=== PATIENT | male | born 1955 | race Caucasian/White ===

== ENCOUNTER 2021-12-19 12:31 | Inpatient (IN) | payer OTHER, MEDICARE ==
[2021-12-19 12:48] VITALS: BMI 24.1
[2021-12-19] MEDS ORDERED: Acetaminophen 325 MG TAB PO PRN ×2 (13:13→15:19)
[2021-12-19] MEDS ORDERED: Ondansetron ODT 4 MG TAB PO PRN (13:13)
[2021-12-19] MEDS ORDERED: Ondansetron PF 4 MG/2 ML Vial IVP PRN (13:13)
[2021-12-19] MEDS ORDERED: Dextrose 5% in Water 1,000 ML IV PRN (13:41)
[2021-12-19] MEDS ORDERED: Dextrose 50% Abboject 50 ML SYRINGE SLOW IVP PRN (13:41)
[2021-12-19] MEDS ORDERED: HumaLOG 300 UNITS/3 ML VIAL SC PRN (13:41)
[2021-12-19] MEDS: Sodium Chloride 0.9% 1,000 ML IV SCH (14:06)
[2021-12-19] MEDS: Morphine 2 MG/ML VIAL SLOW IVP PRN (14:38)
[2021-12-19] MEDS: Sodium Bicarbonate Tab 325 MG TAB PO SCH ×2 (14:57→21:34)
[2021-12-19] MEDS ORDERED: Benzonatate 100 MG CAP PO PRN (15:19)
[2021-12-19] MEDS ORDERED: Acetaminophen 650 MG Suppository PR PRN (15:19)
[2021-12-19 15:51] LABS: Bilirubin Neg (Negative); Blood, Urine 50 (Negative); Clarity Slightly Cloudy (Clear); Glucose, Urine (Dipstick) >=1000 mg/dL (Negative); Ketone, Urine Negative (Negative); Leukocyte 500 (Negative); Nitrite Negative (Negative); Protein, Urine (Dipstick) 100 mg/dl (Neg-Trace); Urobilinogen Normal mg/dL (Less than 2)
[2021-12-19 15:59] LABS: Bacteria/HPF Rare-Few HPF (None Seen); Squamous Epithelial 0-3 HPF (0-3); WBC/HPF 21-50 HPF (0-3); Yeast-Budding 2+ HPF (None Seen); Yeast-Hyphae Rare HPF (None Seen)
[2021-12-19] MEDS ORDERED: Ventolin HFA Inhaler 60 PUFF INHALER INH PRN (16:03)
[2021-12-19] MEDS: HumaLOG 300 UNITS/3 ML VIAL SC PRN (16:24)
[2021-12-19] MEDS: Micafungin 100 MG in Sodium Chloride 0.9% 100 ML IVPB SCH (16:24)
[2021-12-19] MEDS ORDERED: glipiZIDE 5 MG TAB PO SCH (16:30)
[2021-12-19] MEDS ORDERED: metFORMIN 500 MG TAB PO SCH (17:00)
[2021-12-19] MEDS ORDERED: Albumin 25% 25 GM/100 ML BOT IVPB SCH (17:30)
[2021-12-19] MEDS ORDERED: VANCOMYCIN 1.25 GM/250 ML BAG IVPB SCH (21:00)
[2021-12-19] MEDS ORDERED: Famotidine/PF 20 mg/2ml Vial SLOW IVP SCH (21:00)
[2021-12-19] MEDS ORDERED: Famotidine 20 MG TAB PO SCH (21:00)
[2021-12-19] MEDS: Cefepime 1 GM in Sodium Chloride 0.9% 100 ML IVPB SCH (21:31)
[2021-12-19] MEDS: Heparin 5,000 UNITS/ML VIAL SC SCH (21:33)
[2021-12-19] MEDS: Megestrol Acetate 400 MG/10 ML UDCUP PO SCH (21:33)
[2021-12-19] MEDS: Gabapentin 300 MG CAP PO SCH (21:34)
[2021-12-19] MEDS: predniSONE 5 MG TAB PO SCH (21:35)
[2021-12-19] MEDS: Lantus 1000 UNITS/10 ML VIAL SC SCH (22:11)
[2021-12-20] MEDS: Vancomycin HCl 500 MG in Sodium Chloride 0.9% 100 ML IVPB SCH (02:23)
[2021-12-20] MEDS: Sodium Chloride 0.9% 1,000 ML IV SCH ×2 (02:26→15:09)
[2021-12-20] MEDS: HumaLOG 300 UNITS/3 ML VIAL SC PRN ×3 (05:50→17:20)
[2021-12-20 05:52] LABS: MDiff Complete? YES; Mean Corpuscular HGB CONC 31.7 g/dL (32.0-36.0); Mean Corpuscular Hemoglobin 28.5 pg (27.0-33.0); Mean Corpuscular Volume 89.8 fl (81.2-95.1); Mean Platelet Volume 11.6 fl (7.4-10.4); Platelet Count 294 10x3/uL (150-450); RBC Distribution Width 17.6 % (11.5-14.5); Red Blood Cell (RBC) Count 2.46 10x6/uL (4.32-5.72); White Blood Cell (WBC) Count 19.1 10x3/uL (3.5-10.5)
[2021-12-20 06:03] LABS: ALT (SGPT) 6 U/L (8-55); AST (SGOT) 10 U/L (5-34); Albumin 2.7 g/dL (3.4-4.8); Alkaline Phosphatase 108 U/L (40-110); Anion Gap 13 mmol/L (10-20); BUN (Urea Nitrogen) 57 mg/dL (8.4-25.7); Bilirubin, Total 0.3 mg/dL (0.2-1.2); Calc. Creatinine Clearance 30 mL/min (70-130); Calcium 8.5 mg/dL (7.8-10.44); Carbon Dioxide 15 mmol/L (23-31); Chloride 121 mmol/L (98-107); Estimated GFR 25; Globulin 3.7 g/dL (2.4-3.5); Glucose 242 mg/dL (80-115); Potassium 4.2 mmol/L (3.5-5.1); Protein, Total 6.4 g/dL (5.8-8.1); Sodium 145 mmol/L (136-145)
[2021-12-20 06:43] LABS: Band 1 % (5-11); Eosinophils 2 % (0-10); Lymphocytes 12 % (21-51); Monocytes 8 % (0-10); Neutrophil 77 % (42-75)
[2021-12-20 06:45] LABS: Anisocytosis MODERATE=16-30 cells (100X) (0-5/hpf)
[2021-12-20 06:46] LABS: Hypochromia SLIGHT = 6-15 cells (100X) (0-5/hpf); Microcytosis MODERATE=15-30 cells (100X) (0-5/hpf); Platelet Morphology Comment Appears Adequate
[2021-12-20] MEDS ORDERED: Lidocaine 1% PF 5 ML VIAL ONE (07:43)
[2021-12-20] MEDS ORDERED: Sodium Bicarbonate 2.5 MEQ/5 ML VIAL ONE (07:44)
[2021-12-20] MEDS ORDERED: Enoxaparin Sodium 40 MG/0.4 ML SYRINGE SC SCH (09:00)
[2021-12-20] MEDS ORDERED: Fluconazole In NaCl,Iso-Osm 400 MG in Premix Bag 1 BAG IVPB SCH (09:00)
[2021-12-20] MEDS: Heparin 5,000 UNITS/ML VIAL SC SCH ×3 (09:07→22:00)
[2021-12-20] MEDS: HYDROcodone/Acetaminophen 5/325 mg Tablet PO PRN (09:07)
[2021-12-20] MEDS: Megestrol Acetate 400 MG/10 ML UDCUP PO SCH ×2 (09:07→21:41)
[2021-12-20] MEDS: Atorvastatin Calcium 40 MG TAB PO SCH (09:07)
[2021-12-20] MEDS: Sodium Bicarbonate Tab 325 MG TAB PO SCH ×3 (09:07→21:42)
[2021-12-20] MEDS: Gabapentin 300 MG CAP PO SCH ×2 (09:08→21:42)
[2021-12-20] MEDS: Aspirin 81 mg Enteric Coated Tablet PO SCH (09:08)
[2021-12-20] MEDS: predniSONE 5 MG TAB PO SCH ×2 (09:10→21:42)
[2021-12-20] MEDS: metroNIDAZOLE 500 MG TAB PO SCH ×2 (15:09→21:49)
[2021-12-20] MEDS: Micafungin 100 MG in Sodium Chloride 0.9% 100 ML IVPB SCH (17:18)
[2021-12-20] MEDS: Famotidine 20 MG TAB PO SCH (21:52)
[2021-12-20] MEDS: Lantus 1000 UNITS/10 ML VIAL SC SCH (22:00)
[2021-12-20] MEDS: Cefepime 1 GM in Sodium Chloride 0.9% 100 ML IVPB SCH (22:07)
[2021-12-21] MEDS: Famotidine/PF 20 mg/2ml Vial SLOW IVP SCH ×2 (00:59→21:33)
[2021-12-21 05:28] LABS: Hemoglobin 6.9 g/dL (13.5-17.5); Mean Corpuscular HGB CONC 32.1 g/dL (32.0-36.0); Mean Corpuscular Hemoglobin 28.6 pg (27.0-33.0); Mean Corpuscular Volume 89.2 fl (81.2-95.1); Mean Platelet Volume 11.6 fl (7.4-10.4); Platelet Count 291 10x3/uL (150-450); RBC Distribution Width 17.7 % (11.5-14.5); Red Blood Cell (RBC) Count 2.41 10x6/uL (4.32-5.72); White Blood Cell (WBC) Count 21.6 10x3/uL (3.5-10.5)
[2021-12-21 05:30] LABS: MDiff Complete? YES
[2021-12-21 05:46] LABS: Anion Gap 14 mmol/L (10-20); BUN (Urea Nitrogen) 52 mg/dL (8.4-25.7); Calc. Creatinine Clearance 32 mL/min (70-130); Calcium 8.7 mg/dL (7.8-10.44); Carbon Dioxide 14 mmol/L (23-31); Chloride 120 mmol/L (98-107); Estimated GFR 27; Glucose 167 mg/dL (80-115); Magnesium 1.9 mg/dL (1.6-2.6); Sodium 144 mmol/L (136-145)
[2021-12-21 05:47] LABS: Iron 11 ug/dL (65-175); Iron Binding Capacity, Total 76 mcg/dL (261-462)
[2021-12-21 07:17] LABS: Band 6 % (5-11); Eosinophils 2 % (0-10); Lymphocytes 6 % (21-51); Monocytes 9 % (0-10); Neutrophil 76 % (42-75); Reactive Lymphocytes 1 % (0-10)
[2021-12-21 07:19] LABS: Anisocytosis SLIGHT = 6-15 cells (100X) (0-5/hpf); Hypochromia SLIGHT = 6-15 cells (100X) (0-5/hpf); Platelet Morphology Comment Appears Adequate; Polychromasia SLIGHT = 2-3 cells (100X) (0-2/hpf)
[2021-12-21] MEDS: Albumin 25% 25 GM/100 ML BOT IVPB SCH ×3 (09:09→20:06)
[2021-12-21] MEDS: Sodium Chloride 0.9% 1,000 ML IV SCH ×2 (09:09→19:01)
[2021-12-21] MEDS: metroNIDAZOLE 500 MG TAB PO SCH ×3 (09:09→22:56)
[2021-12-21] MEDS: Atorvastatin Calcium 40 MG TAB PO SCH (09:09)
[2021-12-21] MEDS: Sodium Bicarbonate Tab 325 MG TAB PO SCH ×3 (09:09→21:34)
[2021-12-21] MEDS: Gabapentin 300 MG CAP PO SCH ×2 (09:09→21:35)
[2021-12-21] MEDS: Aspirin 81 mg Enteric Coated Tablet PO SCH (09:09)
[2021-12-21] MEDS: Megestrol Acetate 400 MG/10 ML UDCUP PO SCH ×2 (09:09→21:37)
[2021-12-21] MEDS: Cefepime 1 GM in Sodium Chloride 0.9% 100 ML IVPB SCH ×2 (09:10→22:53)
[2021-12-21] MEDS: Heparin 5,000 UNITS/ML VIAL SC SCH ×3 (09:10→22:24)
[2021-12-21] MEDS: predniSONE 5 MG TAB PO SCH (09:12)
[2021-12-21 14:28] LABS: Vancomycin, Trough 16.1 ug/mL
[2021-12-21] MEDS: Vancomycin HCl 500 MG in Sodium Chloride 0.9% 100 ML IVPB SCH (15:50)
[2021-12-21] MEDS: Micafungin 100 MG in Sodium Chloride 0.9% 100 ML IVPB SCH (17:58)
[2021-12-21] MEDS: Famotidine 20 MG TAB PO SCH (22:35)
[2021-12-21] MEDS: Lantus 1000 UNITS/10 ML VIAL SC SCH (22:57)
[2021-12-22] MEDS: Albumin 25% 25 GM/100 ML BOT IVPB SCH (01:58)
[2021-12-22 05:33] LABS: Anion Gap 13 mmol/L (10-20); BUN (Urea Nitrogen) 43 mg/dL (8.4-25.7); Calc. Creatinine Clearance 35 mL/min (70-130); Calcium 8.5 mg/dL (7.8-10.44); Carbon Dioxide 14 mmol/L (23-31); Chloride 121 mmol/L (98-107); Estimated GFR 29; Glucose 121 mg/dL (80-115); Magnesium 1.8 mg/dL (1.6-2.6); Potassium 3.8 mmol/L (3.5-5.1); Sodium 144 mmol/L (136-145)
[2021-12-22 05:40] LABS: Hemoglobin 6.7 g/dL (13.5-17.5); Mean Corpuscular HGB CONC 31.9 g/dL (32.0-36.0); Mean Corpuscular Hemoglobin 28.3 pg (27.0-33.0); Mean Corpuscular Volume 88.6 fl (81.2-95.1); Mean Platelet Volume 11.3 fl (7.4-10.4); Platelet Count 246 10x3/uL (150-450); Red Blood Cell (RBC) Count 2.37 10x6/uL (4.32-5.72); White Blood Cell (WBC) Count 15.4 10x3/uL (3.5-10.5)
[2021-12-22] MEDS: Sodium Chloride 0.9% 1,000 ML IV SCH (05:56)
[2021-12-22 06:22] LABS: MDiff Complete? YES
[2021-12-22 06:55] LABS: Band 2 % (5-11); Eosinophils 3 % (0-10); Lymphocytes 4 % (21-51); Monocytes 11 % (0-10); Neutrophil 80 % (42-75)
[2021-12-22 06:58] LABS: Anisocytosis SLIGHT = 6-15 cells (100X) (0-5/hpf); Hypochromia SLIGHT = 6-15 cells (100X) (0-5/hpf); Microcytosis SLIGHT = 6-15 cells (100X) (0-5/hpf); Ovalocytes SLIGHT = 2-5 cells (100X) (0-1/hpf); Platelet Morphology Comment Appears Adequate; Polychromasia SLIGHT = 2-3 cells (100X) (0-2/hpf)
[2021-12-22] MEDS: Aspirin 81 mg Enteric Coated Tablet PO SCH (08:53)
[2021-12-22] MEDS: Heparin 5,000 UNITS/ML VIAL SC SCH (08:53)
[2021-12-22] MEDS: HYDROcodone/Acetaminophen 5/325 mg Tablet PO PRN ×2 (08:53→21:52)
[2021-12-22] MEDS: Gabapentin 300 MG CAP PO SCH ×2 (08:53→21:52)
[2021-12-22] MEDS: metroNIDAZOLE 500 MG TAB PO SCH ×3 (08:53→21:54)
[2021-12-22] MEDS: Megestrol Acetate 400 MG/10 ML UDCUP PO SCH ×2 (08:53→21:50)
[2021-12-22] MEDS: Cefepime 1 GM in Sodium Chloride 0.9% 100 ML IVPB SCH ×2 (08:54→21:54)
[2021-12-22] MEDS: Atorvastatin Calcium 40 MG TAB PO SCH (08:55)
[2021-12-22] MEDS: Sodium Bicarbonate Tab 325 MG TAB PO SCH ×3 (08:55→21:53)
[2021-12-22 11:48] LABS: Puncture Site RRA
[2021-12-22 11:49] LABS: Actual Bicarbonate (HCO3v) 15 mEq/L (22-28); Base Excess -7.5 mEq/L (-2.0 to +3.0); pH (venous) 7.49 (7.32-7.43)
[2021-12-22 11:50] LABS: Hemoglobin (Hb) 7.9 g/dL (12.6-17.4)
[2021-12-22 11:51] LABS: Calcium, Ionized (venous) 1.13 mmol/L (1.16-1.32); Chloride (VBG) 119 mmol/L (98-106); Potassium (VBG) 4.09 mmol/L (3.70-5.30); RapidComm Collect By CBN
[2021-12-22] MEDS: Micafungin 100 MG in Sodium Chloride 0.9% 100 ML IVPB SCH (15:51)
[2021-12-22] MEDS: HumaLOG 300 UNITS/3 ML VIAL SC PRN (17:04)
[2021-12-22] MEDS: Famotidine/PF 20 mg/2ml Vial SLOW IVP SCH (21:49)
[2021-12-22] MEDS: Famotidine 20 MG TAB PO SCH (21:58)
[2021-12-22] MEDS: Lantus 1000 UNITS/10 ML VIAL SC SCH (22:00)
[2021-12-23] MEDS: Sodium Chloride 0.9% 1,000 ML IV SCH ×2 (04:00→08:57)
[2021-12-23] MEDS: Vancomycin HCl 500 MG in Sodium Chloride 0.9% 100 ML IVPB SCH (04:00)
[2021-12-23 04:38] LABS: Hemoglobin 8.7 g/dL (13.5-17.5); Mean Corpuscular HGB CONC 32.5 g/dL (32.0-36.0); Mean Corpuscular Hemoglobin 28.3 pg (27.0-33.0); Mean Corpuscular Volume 87.3 fl (81.2-95.1); Mean Platelet Volume 11.5 fl (7.4-10.4); Platelet Count 280 10x3/uL (150-450); RBC Distribution Width 17.4 % (11.5-14.5); Red Blood Cell (RBC) Count 3.07 10x6/uL (4.32-5.72); White Blood Cell (WBC) Count 18.6 10x3/uL (3.5-10.5)
[2021-12-23 04:53] LABS: Anion Gap 13 mmol/L (10-20); BUN (Urea Nitrogen) 41 mg/dL (8.4-25.7); Calc. Creatinine Clearance 34 mL/min (70-130); Calcium 8.4 mg/dL (7.8-10.44); Carbon Dioxide 14 mmol/L (23-31); Chloride 119 mmol/L (98-107); Estimated GFR 29; Glucose 184 mg/dL (80-115); Magnesium 1.7 mg/dL (1.6-2.6); Potassium 3.9 mmol/L (3.5-5.1); Sodium 142 mmol/L (136-145)
[2021-12-23 04:54] LABS: MDiff Complete? YES
[2021-12-23 04:57] LABS: Band 7 % (5-11); Eosinophils 2 % (0-10); Lymphocytes 11 % (21-51); Metamyelocyte 1 % (0-0); Monocytes 5 % (0-10); Neutrophil 74 % (42-75)
[2021-12-23 04:58] LABS: Platelet Morphology Comment Appears Adequate; RBC Morphology Normal
[2021-12-23] MEDS: Cefepime 1 GM in Sodium Chloride 0.9% 100 ML IVPB SCH ×2 (08:57→21:42)
[2021-12-23] MEDS: Megestrol Acetate 400 MG/10 ML UDCUP PO SCH ×2 (08:57→21:42)
[2021-12-23] MEDS: Aspirin 81 mg Enteric Coated Tablet PO SCH (08:58)
[2021-12-23] MEDS: Sodium Bicarbonate Tab 325 MG TAB PO SCH ×3 (08:58→21:41)
[2021-12-23] MEDS: metroNIDAZOLE 500 MG TAB PO SCH ×3 (08:58→21:40)
[2021-12-23] MEDS: Gabapentin 300 MG CAP PO SCH ×2 (08:58→21:41)
[2021-12-23] MEDS: HYDROcodone/Acetaminophen 5/325 mg Tablet PO PRN ×2 (08:58→21:39)
[2021-12-23] MEDS: Atorvastatin Calcium 40 MG TAB PO SCH (09:22)
[2021-12-23] MEDS: HumaLOG 300 UNITS/3 ML VIAL SC PRN (12:07)
[2021-12-23] MEDS: Micafungin 100 MG in Sodium Chloride 0.9% 100 ML IVPB SCH (18:04)
[2021-12-23] MEDS: Famotidine 20 MG TAB PO SCH (21:41)
[2021-12-23] MEDS: Famotidine/PF 20 mg/2ml Vial SLOW IVP SCH (22:08)
[2021-12-23] MEDS: Lantus 1000 UNITS/10 ML VIAL SC SCH (22:08)
[2021-12-24 03:59] LABS: Hemoglobin 9.5 g/dL (13.5-17.5); Mean Corpuscular HGB CONC 32.1 g/dL (32.0-36.0); Mean Corpuscular Hemoglobin 28.2 pg (27.0-33.0); Mean Corpuscular Volume 87.8 fl (81.2-95.1); Mean Platelet Volume 11.2 fl (7.4-10.4); Platelet Count 299 10x3/uL (150-450); RBC Distribution Width 17.5 % (11.5-14.5); Red Blood Cell (RBC) Count 3.37 10x6/uL (4.32-5.72); White Blood Cell (WBC) Count 20.7 10x3/uL (3.5-10.5)
[2021-12-24 04:12] LABS: Anion Gap 14 mmol/L (10-20); BUN (Urea Nitrogen) 38 mg/dL (8.4-25.7); Calc. Creatinine Clearance 31 mL/min (70-130); Calcium 8.3 mg/dL (7.8-10.44); Carbon Dioxide 13 mmol/L (23-31); Chloride 118 mmol/L (98-107); Estimated GFR 25; Glucose 236 mg/dL (80-115); Potassium 4.4 mmol/L (3.5-5.1); Sodium 141 mmol/L (136-145)
[2021-12-24 04:40] LABS: MDiff Complete? YES
[2021-12-24 04:42] LABS: Band 4 % (5-11); Eosinophils 1 % (0-10); Lymphocytes 2 % (21-51); Metamyelocyte 1 % (0-0); Monocytes 3 % (0-10); Neutrophil 89 % (42-75); Platelet Morphology Comment Appears Adequate
[2021-12-24 04:43] LABS: RBC Morphology Normal
[2021-12-24 04:53] LABS: Magnesium 1.7 mg/dL (1.6-2.6)
[2021-12-24] MEDS: HYDROcodone/Acetaminophen 5/325 mg Tablet PO PRN ×2 (05:58→11:34)
[2021-12-24] MEDS: Sodium Chloride 0.9% 1,000 ML IV SCH ×4 (07:37→23:07)
[2021-12-24] MEDS: HumaLOG 300 UNITS/3 ML VIAL SC PRN ×3 (07:37→17:11)
[2021-12-24] MEDS: Cefepime 1 GM in Sodium Chloride 0.9% 100 ML IVPB SCH ×2 (08:55→21:01)
[2021-12-24] MEDS: Atorvastatin Calcium 40 MG TAB PO SCH (08:56)
[2021-12-24] MEDS: Aspirin 81 mg Enteric Coated Tablet PO SCH (08:56)
[2021-12-24] MEDS: Megestrol Acetate 400 MG/10 ML UDCUP PO SCH ×2 (08:56→21:05)
[2021-12-24] MEDS: Sodium Bicarbonate Tab 325 MG TAB PO SCH ×3 (08:56→21:04)
[2021-12-24] MEDS: metroNIDAZOLE 500 MG TAB PO SCH ×3 (08:56→21:05)
[2021-12-24] MEDS: Gabapentin 300 MG CAP PO SCH ×2 (08:56→21:05)
[2021-12-24] MEDS: Vancomycin HCl 500 MG in Sodium Chloride 0.9% 100 ML IVPB SCH (14:24)
[2021-12-24 15:16] LABS: Vancomycin, Trough 14.6 ug/mL
[2021-12-24 15:44] LABS: Ref Lab Test Ordered Yeast Id & SUSCEP; Reference Lab Name LABCORP
[2021-12-24] MEDS: Micafungin 100 MG in Sodium Chloride 0.9% 100 ML IVPB SCH (16:59)
[2021-12-24] MEDS: Famotidine/PF 20 mg/2ml Vial SLOW IVP SCH (21:04)
[2021-12-24] MEDS: Lantus 1000 UNITS/10 ML VIAL SC SCH (21:20)
[2021-12-24] MEDS: Famotidine 20 MG TAB PO SCH (21:23)
[2021-12-25 00:31] LABS: SARS-CoV-2 NAA Rapid Test Not Detected (NotDetected)
[2021-12-25 05:13] LABS: Hemoglobin 8.8 g/dL (13.5-17.5); Mean Corpuscular HGB CONC 32.1 g/dL (32.0-36.0); Mean Corpuscular Hemoglobin 28.3 pg (27.0-33.0); Mean Corpuscular Volume 88.1 fl (81.2-95.1); Mean Platelet Volume 11.7 fl (7.4-10.4); Platelet Count 275 10x3/uL (150-450); RBC Distribution Width 17.4 % (11.5-14.5); Red Blood Cell (RBC) Count 3.11 10x6/uL (4.32-5.72); White Blood Cell (WBC) Count 22.5 10x3/uL (3.5-10.5)
[2021-12-25 05:23] LABS: Anion Gap 16 mmol/L (10-20); BUN (Urea Nitrogen) 36 mg/dL (8.4-25.7); Calc. Creatinine Clearance 35 mL/min (70-130); Calcium 7.9 mg/dL (7.8-10.44); Carbon Dioxide 11 mmol/L (23-31); Chloride 121 mmol/L (98-107); Estimated GFR 29; Glucose 148 mg/dL (80-115); Magnesium 1.6 mg/dL (1.6-2.6); Sodium 144 mmol/L (136-145)
[2021-12-25 05:29] LABS: MDiff Complete? YES
[2021-12-25] MEDS: Sodium Chloride 0.9% 1,000 ML IV SCH ×3 (05:57→23:00)
[2021-12-25 05:59] LABS: Band 12 % (5-11); Eosinophils 3 % (0-10); Lymphocytes 5 % (21-51); Metamyelocyte 1 % (0-0); Monocytes 4 % (0-10); Neutrophil 75 % (42-75)
[2021-12-25 06:00] LABS: Platelet Morphology Comment Appears Adequate
[2021-12-25 06:01] LABS: RBC Morphology Normal
[2021-12-25] MEDS ORDERED: Sodium Bicarbonate Tab 325 MG TAB PO SCH (09:00)
[2021-12-25] MEDS: Aspirin 81 mg Enteric Coated Tablet PO SCH (09:55)
[2021-12-25] MEDS: metroNIDAZOLE 500 MG TAB PO SCH ×3 (09:56→22:34)
[2021-12-25] MEDS: Gabapentin 300 MG CAP PO SCH ×2 (09:56→22:33)
[2021-12-25] MEDS: Megestrol Acetate 400 MG/10 ML UDCUP PO SCH ×2 (09:56→22:34)
[2021-12-25] MEDS: Atorvastatin Calcium 40 MG TAB PO SCH (09:56)
[2021-12-25] MEDS: Cefepime 1 GM in Sodium Chloride 0.9% 100 ML IVPB SCH ×2 (09:56→22:39)
[2021-12-25] MEDS: Sodium Bicarbonate Tab 325 MG TAB PO SCH ×3 (09:56→22:34)
[2021-12-25] MEDS: Micafungin 100 MG in Sodium Chloride 0.9% 100 ML IVPB SCH (18:45)
[2021-12-25 19:17] LABS: Bilirubin Neg (Negative); Blood, Urine 150 (Negative); Clarity Clear (Clear); Glucose, Urine (Dipstick) 250 mg/dL (Negative); Ketone, Urine 15 mg/dL (Negative); Leukocyte 500 (Negative); Nitrite Negative (Negative); Protein, Urine (Dipstick) 100 mg/dl (Neg-Trace); Urobilinogen Normal mg/dL (Less than 2); pH, Urine 6.5 (5.0-9.0)
[2021-12-25 19:18] LABS: Urine Culture Reflex No No
[2021-12-25 19:30] LABS: Bacteria/HPF 2+ HPF (None Seen); Squamous Epithelial None Seen HPF (0-3); Transitional Epithelial None Seen HPF (None Seen); WBC/HPF 21-50 HPF (0-3); White Blood Cell Cast 0-3 LPF (None Seen)
[2021-12-25 19:31] LABS: Calcium Oxalate Crystals Rare HPF (None Seen)
[2021-12-25] MEDS: Famotidine 20 MG TAB PO SCH (22:35)
[2021-12-25] MEDS: Famotidine/PF 20 mg/2ml Vial SLOW IVP SCH (22:35)
[2021-12-25] MEDS: Lantus 1000 UNITS/10 ML VIAL SC SCH (22:36)
[2021-12-26] MEDS: Sodium Chloride 0.9% 1,000 ML IV SCH ×3 (00:24→22:12)
[2021-12-26] MEDS: Vancomycin HCl 500 MG in Sodium Chloride 0.9% 100 ML IVPB SCH (03:04)
[2021-12-26 05:07] LABS: Hemoglobin 9.6 g/dL (13.5-17.5); Mean Corpuscular HGB CONC 32.5 g/dL (32.0-36.0); Mean Corpuscular Hemoglobin 29.2 pg (27.0-33.0); Mean Corpuscular Volume 89.7 fl (81.2-95.1); Mean Platelet Volume 11.8 fl (7.4-10.4); Platelet Count 271 10x3/uL (150-450); RBC Distribution Width 17.4 % (11.5-14.5); Red Blood Cell (RBC) Count 3.29 10x6/uL (4.32-5.72); White Blood Cell (WBC) Count 20.8 10x3/uL (3.5-10.5)
[2021-12-26 05:09] LABS: Anion Gap 15 mmol/L (10-20); BUN (Urea Nitrogen) 36 mg/dL (8.4-25.7); Calc. Creatinine Clearance 38 mL/min (70-130); Calcium 8.3 mg/dL (7.8-10.44); Carbon Dioxide 13 mmol/L (23-31); Chloride 118 mmol/L (98-107); Estimated GFR 32; Glucose 238 mg/dL (80-115); Magnesium 1.6 mg/dL (1.6-2.6); Potassium 4.3 mmol/L (3.5-5.1); Sodium 142 mmol/L (136-145)
[2021-12-26 05:53] LABS: MDiff Complete? YES
[2021-12-26 06:17] LABS: Band 11 % (5-11); Eosinophils 1 % (0-10); Lymphocytes 9 % (21-51); Monocytes 10 % (0-10); Neutrophil 69 % (42-75)
[2021-12-26 06:19] LABS: Platelet Morphology Comment Appears Adequate; RBC Morphology Normal
[2021-12-26] MEDS: Aspirin 81 mg Enteric Coated Tablet PO SCH (12:33)
[2021-12-26] MEDS: Atorvastatin Calcium 40 MG TAB PO SCH (12:33)
[2021-12-26] MEDS: Gabapentin 300 MG CAP PO SCH (12:33)
[2021-12-26] MEDS: metroNIDAZOLE 500 MG TAB PO SCH ×2 (12:34→15:08)
[2021-12-26] MEDS: Sodium Bicarbonate Tab 325 MG TAB PO SCH ×3 (12:34→21:25)
[2021-12-26] MEDS: Megestrol Acetate 400 MG/10 ML UDCUP PO SCH ×2 (12:34→21:26)
[2021-12-26] MEDS: Cefepime 1 GM in Sodium Chloride 0.9% 100 ML IVPB SCH (13:25)
[2021-12-26] MEDS: Morphine 2 MG/ML VIAL SLOW IVP PRN (15:26)
[2021-12-26] MEDS: Micafungin 100 MG in Sodium Chloride 0.9% 100 ML IVPB SCH (18:30)
[2021-12-26] MEDS: HumaLOG 300 UNITS/3 ML VIAL SC PRN (20:58)
[2021-12-26] MEDS: Famotidine/PF 20 mg/2ml Vial SLOW IVP SCH (21:25)
[2021-12-26] MEDS: Lantus 1000 UNITS/10 ML VIAL SC SCH (21:27)
[2021-12-26] MEDS: Famotidine 20 MG TAB PO SCH (22:11)
[2021-12-27] MEDS: Morphine 2 MG/ML VIAL SLOW IVP PRN ×3 (03:40→22:11)
[2021-12-27] MEDS: Sodium Chloride 0.9% 1,000 ML IV SCH ×3 (06:23→22:12)
[2021-12-27] MEDS: HumaLOG 300 UNITS/3 ML VIAL SC PRN ×3 (06:41→17:13)
[2021-12-27] MEDS: Aspirin Chewable 81 MG TAB PO SCH (08:56)
[2021-12-27] MEDS: Megestrol Acetate 400 MG/10 ML UDCUP PO SCH ×2 (08:56→21:18)
[2021-12-27] MEDS: Sodium Bicarbonate Tab 325 MG TAB PO SCH ×3 (08:56→21:18)
[2021-12-27] MEDS: Atorvastatin Calcium 40 MG TAB PO SCH (08:57)
[2021-12-27 10:36] LABS: Anion Gap 11 mmol/L (10-20); BUN (Urea Nitrogen) 25 mg/dL (8.4-25.7); Calc. Creatinine Clearance 70 mL/min (70-130); Calcium 7.9 mg/dL (7.8-10.44); Carbon Dioxide 16 mmol/L (23-31); Chloride 117 mmol/L (98-107); Estimated GFR 67; Glucose 204 mg/dL (80-115); Potassium 3.4 mmol/L (3.5-5.1); Sodium 141 mmol/L (136-145)
[2021-12-27 10:46] LABS: Hemoglobin 8.9 g/dL (13.5-17.5); Mean Corpuscular HGB CONC 32.1 g/dL (32.0-36.0); Mean Corpuscular Hemoglobin 28.6 pg (27.0-33.0); Mean Corpuscular Volume 89.1 fl (81.2-95.1); Mean Platelet Volume 11.3 fl (7.4-10.4); Platelet Count 263 10x3/uL (150-450); RBC Distribution Width 17.1 % (11.5-14.5); Red Blood Cell (RBC) Count 3.11 10x6/uL (4.32-5.72); White Blood Cell (WBC) Count 16.9 10x3/uL (3.5-10.5)
[2021-12-27 10:50] LABS: MDiff Complete? YES
[2021-12-27 11:20] LABS: Band 9 % (5-11); Eosinophils 2 % (0-10); Lymphocytes 10 % (21-51); Monocytes 4 % (0-10); Neutrophil 75 % (42-75)
[2021-12-27 11:22] LABS: Platelet Morphology Comment Appears Adequate
[2021-12-27 11:23] LABS: RBC Morphology Normal
[2021-12-27] MEDS ORDERED: Sodium Chloride 0.9% 100 ML ONE (15:24)
[2021-12-27] MEDS: Micafungin 100 MG in Sodium Chloride 0.9% 100 ML IVPB SCH (16:51)
[2021-12-27] MEDS ORDERED: Famotidine/PF 20 mg/2ml Vial SLOW IVP PRN (21:00)
[2021-12-27] MEDS: Lantus 1000 UNITS/10 ML VIAL SC SCH (21:18)
[2021-12-27] MEDS: Famotidine 20 MG TAB PO SCH (21:18)
[2021-12-28 04:53] LABS: Hemoglobin 9.3 g/dL (13.5-17.5); MDiff Complete? YES; Mean Corpuscular HGB CONC 32.1 g/dL (32.0-36.0); Mean Corpuscular Hemoglobin 28.4 pg (27.0-33.0); Mean Corpuscular Volume 88.4 fl (81.2-95.1); Mean Platelet Volume 11.4 fl (7.4-10.4); Platelet Count 284 10x3/uL (150-450); RBC Distribution Width 16.8 % (11.5-14.5); Red Blood Cell (RBC) Count 3.28 10x6/uL (4.32-5.72); White Blood Cell (WBC) Count 18.9 10x3/uL (3.5-10.5)
[2021-12-28 04:54] LABS: Anion Gap 12 mmol/L (10-20); BUN (Urea Nitrogen) 20 mg/dL (8.4-25.7); Calc. Creatinine Clearance 90 mL/min (70-130); Carbon Dioxide 18 mmol/L (23-31); Chloride 117 mmol/L (98-107); Estimated GFR 91; Glucose 186 mg/dL (80-115); Potassium 3.6 mmol/L (3.5-5.1); Sodium 143 mmol/L (136-145)
[2021-12-28] MEDS: Morphine 2 MG/ML VIAL SLOW IVP PRN (05:12)
[2021-12-28 05:17] LABS: Band 15 % (5-11); Eosinophils 1 % (0-10); Lymphocytes 12 % (21-51); Metamyelocyte 1 % (0-0); Monocytes 7 % (0-10); Neutrophil 64 % (42-75)
[2021-12-28 05:19] LABS: Platelet Morphology Comment Appears Adequate; RBC Morphology Normal
[2021-12-28] MEDS: HumaLOG 300 UNITS/3 ML VIAL SC PRN (06:25)
[2021-12-28] MEDS: Sodium Chloride 0.9% 1,000 ML IV SCH (08:13)
[2021-12-28] MEDS: Atorvastatin Calcium 40 MG TAB PO SCH (08:15)
[2021-12-28] MEDS: Sodium Bicarbonate Tab 325 MG TAB PO SCH ×2 (08:15→15:24)
[2021-12-28] MEDS: Famotidine 20 MG TAB PO SCH (08:15)
[2021-12-28] MEDS: Aspirin Chewable 81 MG TAB PO SCH (08:15)
[2021-12-28] MEDS: Megestrol Acetate 400 MG/10 ML UDCUP PO SCH (08:15)
[2021-12-28] MEDS ORDERED: Sodium Chloride 0.9% 1,000 ML IV SCH (14:47)
[2021-12-28 16:57] VITALS: BP 140/75; TEMP 98.7
== END 2021-12-28 18:15 | disposition swing bed (61) | DRG 871 ==
LOC: CSHTELE 12:31
PROVIDERS: ADMIT Family Medicine; ATTEND Internal Medicine
PROC: 3E04329 Introduction of Other Anti-infective into Central Vein, Percutaneous Approach (ICD-10-PCS; principal; 2021-12-19)
PROC: 02HV33Z Insertion of Infusion Device into Superior Vena Cava, Percutaneous Approach (ICD-10-PCS; 2021-12-20)
PROC: 30233N1 Transfusion of Nonautologous Red Blood Cells into Peripheral Vein, Percutaneous Approach (ICD-10-PCS; 2021-12-21)
DX: B37.7 Candidal sepsis (principal); G93.41 Metabolic encephalopathy; L89.613 Pressure ulcer of right heel, stage 3; J18.9 Pneumonia, unspecified organism; L89.154 Pressure ulcer of sacral region, stage 4; N17.9 Acute kidney failure, unspecified; J98.11 Atelectasis; E87.2 Acidosis; N18.4 Chronic kidney disease, stage 4 (severe); E11.319 Type 2 diabetes mellitus with unspecified diabetic retinopathy without macular edema; Z66 Do not resuscitate; T87.54 Necrosis of amputation stump, left lower extremity; B37.49 Other urogenital candidiasis; E78.5 Hyperlipidemia, unspecified; R33.9 Retention of urine, unspecified; D64.9 Anemia, unspecified; E11.51 Type 2 diabetes mellitus with diabetic peripheral angiopathy without gangrene; I12.9 Hypertensive chronic kidney disease with stage 1 through stage 4 chronic kidney disease, or unspecified chronic kidney disease; E11.22 Type 2 diabetes mellitus with diabetic chronic kidney disease; R53.1 Weakness; R53.81 Other malaise; E11.42 Type 2 diabetes mellitus with diabetic polyneuropathy; R65.20 Severe sepsis without septic shock; Z79.82 Long term (current) use of aspirin; Z79.899 Other long term (current) drug therapy; Z79.4 Long term (current) use of insulin; Z79.84 Long term (current) use of oral hypoglycemic drugs; Z79.52 Long term (current) use of systemic steroids
CPT/HCPCS: 36415; 36416; 36430; 36569; 36600; 70450; 74230; 76770; 80048; 80053; 80202; 81001; 82533; 82728; 82805; 83540; 83550; 83735; 84145; 85025; 85046; 85652; 86140; 86850; 86900; 86901; 87040; 87071; 87086; 93306; 94760; 97139; C1751; J0692; J1644; J1815; J2248; J2270; J3370; J3490; J7050; J7512; P9016; P9047; S0028; U0002